=== PATIENT | female | born 1950 | race Hispanic/Latino ===

== ENCOUNTER 2018-05-22 17:57 | Observation (INO) | payer OTHER ==
[2018-05-22 18:25] LABS: Absolute Lymphocytes (CBC) 2.6 K/uL (0.7-4.9); Absolute Monocytes 0.4 K/uL (0.1-1.3); Absolute Neutrophil 4.3 K/uL (1.8-8.0); Basophils % 0.2 % (0-1.3); Eosinophils % 0.9 % (0-4.4); Hematocrit 40.8 % (36.0-45.0); Lymphocytes % 35.4 % (15.3-44.8); MPV 9.6 fL (7.6-11.3); Monocytes % 6.1 % (3.3-12.3); RBC Red Blood Cell Count 4.49 M/uL (3.86-4.86)
[2018-05-22 18:32] LABS: Protime INR 0.99
[2018-05-22] MEDS ORDERED: ONDANSETRON 4 MG/2 ML VIAL ONE (18:32)
[2018-05-22] MEDS ORDERED: MORPHINE 4 MG/ML SYR ONE (18:32)
[2018-05-22] MEDS ORDERED: NA CHLORIDE 0.9% 1,000 ML ONE (18:32)
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
[2018-05-22 18:46] LABS: BUN Blood Urea Nitrogen 14 mg/dL (7-18); Bicarbonate 27 mmol/L (21-32); Glucose Level 125 mg/dL (74-106); Potassium 3.6 mmol/L (3.5-5.1); Sodium Level 140 mmol/L (136-145); Troponin I < 0.02 ng/mL (0.0-0.045)
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
[2018-05-22] MEDS ORDERED: PROMETHAZINE 25 MG/ML VIAL ONE (19:12)
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
[2018-05-22] MEDS ORDERED: ASPIRIN 81 MG CHEWABLE TABLET ONE (20:25)
[2018-05-22] MEDS ORDERED: KETOROLAC 30 MG/ML INJ ONE (20:26)
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
[2018-05-22] MEDS ORDERED: ACETAMINOPHEN 500 MG TAB PO PRN (21:06)
[2018-05-22] MEDS ORDERED: MORPHINE 4 MG/ML SYR IV PRN (21:06)
[2018-05-22] MEDS ORDERED: ONDANSETRON 4 MG/2 ML VIAL IV PRN (21:06)
[2018-05-22] MEDS: NA CHLORIDE 0.9% 1,000 ML IV SCH (23:19)
[2018-05-23 01:57] VITALS: BMI 29.5
[2018-05-23 02:12] VITALS: O2SAT 96
[2018-05-23 05:24] LABS: Absolute Lymphocytes (CBC) 2.5 K/uL (0.7-4.9); Absolute Monocytes 0.5 K/uL (0.1-1.3); Absolute Neutrophil 3.9 K/uL (1.8-8.0); Basophils % 0.2 % (0-1.3); Eosinophils % 1.9 % (0-4.4); Hematocrit 37.3 % (36.0-45.0); Lymphocytes % 35.6 % (15.3-44.8); MPV 9.4 fL (7.6-11.3); Monocytes % 7.7 % (3.3-12.3); RBC Red Blood Cell Count 4.09 M/uL (3.86-4.86)
[2018-05-23 05:42] LABS: Albumin 3.4 g/dL (3.4-5.0); Potassium 3.4 mmol/L (3.5-5.1); Protein, Total 6.6 g/dL (6.4-8.2)
[2018-05-23] MEDS: NA CHLORIDE 0.9% 1,000 ML IV SCH (08:00)
[2018-05-23 08:40] VITALS: BP 125/66; TEMP 97
[2018-05-23 08:48] LABS: Urine Appearance CLEAR; Urine Bilirubin NEGATIVE (NEG); Urine Blood NEGATIVE (NEG); Urine Color YELLOW; Urine Glucose NEGATIVE (NEG); Urine Protein NEGATIVE (NEG); Urine Specific Gravity >=1.030 (1.005-1.030); Urine Urobilinogen 0.2 mg/dL (0.2-1.0)
[2018-05-23 08:59] LABS: Urine Microscopic Reflex NO UMIC
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
--- NOTE | 2018-05-23 16:09 | EKG ---
Test Date: 2018-05-22 Test Time: 21:25:24 Black Leather Trimmer: MEASUREMENT RESULTS: Intervals: Rate: 65 MO: 148 QRSD: 78 QT: 432 QTc: 449 [place]: P: 32 MO: 148 QRS: -22 T: -70 INTERPRETIVE STATEMENTS: Normal sinus rhythm nst Abnormal ECG Compared to ECG 05/22/2018 18:20:30 ST (T wave) deviation now present Myocardial infarct finding no longer present Electronically Signed On 05-23-18 16:08:42 AREA OPERATIONS DIRECTOR by Royal Manuel
--- NOTE | 2018-05-23 16:10 | EKG ---
Test Date: 2018-05-22 Test Time: 18:20:30 Energy Analyst: DEMETRICE MEASUREMENT RESULTS: Intervals: Rate: 70 GA: 152 QRSD: 82 QT: 412 QTc: 444 [place]: P: 70 GA: 152 QRS: 40 T: 54 INTERPRETIVE STATEMENTS: Normal sinus rhythm Septal infarct, age undetermined Abnormal ECG No previous ECG available for comparison Electronically Signed On 05-23-18 16:09:15 FENCE SETTER by Royal Manuel
== END 2018-05-23 11:58 | disposition home or self-care (01) ==
LOC: ER 17:57 → ERHOLD 21:07 → 2ND 22:40
PROVIDERS: ADMIT Hospitalist; ATTEND Hospitalist
DX: R07.9 Chest pain, unspecified (principal); V47.5XXA Car driver injured in collision with fixed or stationary object in traffic accident, initial encounter; Z88.0 Allergy status to penicillin; Z88.7 Allergy status to serum and vaccine
CPT/HCPCS: 36415; 70450; 71045; 71260; 72125; 72170; 74177; 80048; 80053; 81003; 84484 ×4; 85025 ×2; 85610; 85730; 93005 ×2; 96361; 96374; 96375; 99285; G0378 ×2; J2405; J2550; J7030 ×2; Q9967